=== PATIENT | female | born 1985 | race Caucasian/White ===

== ENCOUNTER → 2019-04-15 | Outpatient (CLI) | payer BC ==
--- NOTE | 2019-04-17 04:30 | CT ---
EXAMINATION TYPE: CT abdomen pelvis w con DATE OF EXAM: 04/15/2019 COMPARISON: NONE HISTORY: 33-year-old female Incisional hernia TECHNIQUE: Contiguous axial scanning of the abdomen and pelvis following administration of 100 ml Iso madi 300 IV contrast. Delayed images through the kidneys and coronal/sagittal reconstructions perform ed. CT DLP: 838 mGycm Automated exposure control for dose reduction was used. FINDINGS: Heart normal size without pericardial effusion. Lung bases clear without pleural effusion. No focal liver lesion or biliary ductal dilatation. Portal venous system is patent. Gallbladder, adrenal glands, kidneys, spleen, and pancreas appear within normal limits. No dilated small bowel, free fluid, or free air. Paucity of intra-abdominal fat limits assessment. No abdominal or pelvic lymphadenopathy is clearly i dentified. Mild circumferential bladder wall thickening may relate to nondistention. Tampon is in place. Uterus retroverted. Both ovaries are visualized. Mild cul-de-sac free fluid likely physiologic. There is a horizontally oriented scar along the anterior pelvis subcutaneous adipose. Along the left lateral margin of the scar, approximately 2.5 cm off midline, there is a 1.5 cm nodular area of incre ased density, possible enhancement with mild surrounding reticulation. No discrete abdominal wall her ely is seen. Bones: No osseous destructive process. IMPRESSION: 1. PRIOR SCAR. 2. ALONG THE LEFT LATERAL MARGIN OF THE SCAR, APPROXIMATELY 2.5 CM OFF MIDLINE, AND LOCATED WITHIN TH E SUBCUTANEOUS ADIPOSE, THERE IS A 1.5 CM NODULAR DENSITY WITH POSSIBLE ENHANCEMENT DEMONSTRATING MIL D SURROUNDING FAT STRANDING. NODULAR SCAR TISSUE VERSUS DISPLACED ENDOMETRIAL TISSUE THAT COULD EXPER IENCE CYCLICAL PAIN ARE IN THE DIFFERENTIAL. 3. NO DISCRETE ABDOMINAL WALL HERNIA. 4. RETROVERTED UTERUS. MILD CUL-DE-SAC FREE FLUID LIKELY PHYSIOLOGIC. 5. MILD CIRCUMFERENTIAL BLADDER WALL THICKENING MAY RELATE TO INCOMPLETE DISTENTION OR CYSTITIS. CLIN ICALLY CORRELATE.
== END | disposition home or self-care (01) ==
LOC: RADCTMAIN 13:14
PROVIDERS: ATTEND Surgery
DX: N85.4 Malposition of uterus (principal); N32.89 Other specified disorders of bladder
CPT/HCPCS: 74177; Q9967

== ENCOUNTER → 2023-06-04 | Outpatient (CLI) | payer BC ==
[2023-06-04 15:16] VITALS: BP 133/91; PULSE 87; RESP 17; TEMP 98.3
--- NOTE | 2023-06-04 15:23 | P.GSHP ---
History of Present Illness H&P Date: 06/04/23 Chief Complaint: breast mass Kym is a 37-year-old female seen in consultation regarding a mass in the right breast. [place] [address]. This revealed dense parenchyma diminishing the sensitivity of the mammogram to detect subtle lesions, a 2 cm density at the axillary portion of the right breast for which ultrasound was recommended was performed at that time. An ultrasound [place] performed [place] [address]672. This revealed a benign 9 x 8 mm lymph node as well as several cysts. These were felt to be benign and normal interval follow-up was recommended. [place] [address]. This revealed in the right breast at the 12 o'clock position a 1.2 x 0.9 cm mass. It presented with hypoechoic echo pattern with no posterior acoustic features. She also had a simple cyst of 0.7 x 0.8 cm in the left breast. The conclusion was benign findings and routine screening of both breasts. She has had a lump in her right breast for about 1 year. She states it is painful, it has not changed in size. She complains of soreness at the site and aching. She is not complaining of shooting pain. Complaining of any trauma to her breast. She has not had any recent infection in her breast. She is not complaining of anything abnormal nipple discharge. She has not had any surgery on her breast. CAffiene: occasional nicotine: none chocolate: several times a week BCP: used for 15-28 Family History: maternal aunt: 2 with breast cancer maternal aunt: blood cancer maternal uncle: skin cancer Hormonal History: menarche: 12 , breast fed: yes, age at first : 26 periods regular Surgical History: 2 C-sections Medical History: none Social History: HEENT: Negative Alcohol: twice a month drugs: none - Constitutional Constitutional: Denies chills, Denies fever - EENT Eyes: denies blurred vision, denies pain Ears: deny: decreased hearing, tinnitus Ears, nose, mouth and throat: Denies headache, Denies sore throat - Breasts Breasts: bilateral: as per HPI - Cardiovascular Cardiovascular: Denies chest pain, Denies shortness of breath - Respiratory Respiratory: Denies cough, Denies 7 - Gastrointestinal Gastrointestinal: Denies abdominal pain, Denies diarrhea, Denies nausea, Denies vomiting - Genitourinary (Female) Genitourinary: Denies dysuria, Denies hematuria - Menstruation Menstruation: Reports period normal - Musculoskeletal Musculoskeletal: Denies myalgias - Integumentary Integumentary: Denies pruritus, Denies rash - Neurological Neurological: Denies numbness, Denies weakness - Psychiatric Psychiatric: Denies anxiety, Denies depression - Endocrine Endocrine: Denies fatigue, Denies weight change - Hematologic/Lymphatic Comment: none - Allergic/Immunologic Allergic/Immunologic: Reports seasonal allergies Medications and Allergies Allergies Allergy/AdvReac Type Severity Reaction Status Date / Time No Known Allergies Allergy Unverified 06/04/23 14:58 Surgical - Exam - General no distress - Eyes normal ocular movement - ENT no hearing loss - Neck trachea midline - Respiratory normal respiratory effort, clear to auscultation - Cardiovascular Rhythm: regular Heart Sounds: normal: S1, S2 - Abdomen Abdomen: soft, non tender, no guarding, no rigid, no rebound - Integumentary normal turgor - Neurologic no disoriented, no combative - Musculoskeletal normal gait - Psychiatric oriented to time, oriented to person, oriented to place, speech is normal, memory intact Breast Exam: BRA: 34B Inspection: Bilateral grade 2 ptosis Palpation: Right breast: Multiple positional exam fibrocystic changes, dense breast tissue, increased nodularity approximately 10 o'clock position approximately 1.2 cm in size consistent with the lesion seen on ultrasound described at 12:00 Right axilla: No adenopathy of concern Left breast: Multi-positional exam fibrocystic changes, dense breasts, no discrete dominant masses or nodules of concern Left axilla: No adenopathy of concern Results Ultrasound reviewed [place] breast [place] [id number] Assessment and Plan Assessment: Impression: Abnormal right breast mass/ultrasound 10 o'clock position Dense breast tissue Plan: Right breast targeted ultrasound with possible biopsy of tender palpable mass at 10:00 right breast Patient to follow up after this is done CC: Jemma Bhatia
== END ==
LOC: WWCWWP 14:50
PROVIDERS: ATTEND Surgery
DX: Z12.31 Encounter for screening mammogram for malignant neoplasm of breast (principal); N63.11 Unspecified lump in the right breast, upper outer quadrant; N60.02 Solitary cyst of left breast; N63.15 Unspecified lump in the right breast, overlapping quadrants; Z80.3 Family history of malignant neoplasm of breast

== ENCOUNTER → 2023-06-11 | Outpatient (CLI) | payer BC ==
--- NOTE | 2023-06-11 08:58 | USB ---
Reason for Exam: Clinical finding. Risk Values: Alexandra 5 year model risk: 0.3%. NCI Lifetime model risk: 6.8%. Technique: Method: Targeted. Findings: The upper outer quadrant of the right breast, the area of palpable concern of the right breast, the axilla of the right breast and the retroareolar of the right breast were scanned. Targeted ultrasound of the right breast from 10-12 o'clock with additional evaluation the nipple and extra toe was performed. No definitive lesion at 10:00. There is redemonstration of a thin wall cyst with thin septations within the right breast at 12:00 3 cm the nipple measuring 1.3 x 0.7 x 1.3 cm, previously measured 0.9 x 1.1 x 0.5 cm. Overall Assessment: Benign, BI-RAD 2 Management: Screening Mammogram of both breasts at age 39. Minimally complex cyst at 12:00 in the right breast is marginally larger in size prior exam. This is amenable to ultrasound-guided aspiration as clinically indicated. A clinical breast exam by your physician is recommended on an annual basis and results should be correlated with mammographic findings. This exam should not preclude additional follow-up of suspicious palpable abnormalities. Results were given to the patient verbally at the time of exam. Electronically signed and approved by: Roman Shelley D.O.
== END | disposition home or self-care (01) ==
LOC: RADUSWWP 08:19
PROVIDERS: ATTEND Surgery
DX: N63.10 Unspecified lump in the right breast, unspecified quadrant (principal)

== ENCOUNTER → 2023-06-17 | Outpatient (CLI) | payer BC ==
--- NOTE | 2023-06-17 13:17 | P.PN ---
Subjective Progress Note Date: 06/17/23 Principal diagnosis: mass right breat at 10:00 breast mass Kym is a 37-year-old female seen in consultation regarding a mass in the right breast. [place] [address]. This revealed dense parenchyma diminishing the sensitivity of the mammogram to detect subtle lesions, a 2 cm density at the axillary portion of the right breast for which ultrasound was recommended was performed at that time. An ultrasound was performed and 37053. This revealed a benign 9 x 8 mm lymph node as well as several cysts. These were felt to be benign and normal interval follow-up was recommended. [place] [address]. This revealed in the right breast at the 12 o'clock position a 1.2 x 0.9 cm mass. It presented with hypoechoic echo pattern with no posterior acoustic features. She also had a simple cyst of 0.7 x 0.8 cm in the left breast. The conclusion was benign findings and routine screening of both breasts. She has had a lump in her right breast for about 1 year. She states it is painful, it has not changed in size. She complains of soreness at the site and aching. She is not complaining of shooting pain. Complaining of any trauma to her breast. She has not had any recent infection in her breast. She is not complaining of anything abnormal nipple discharge. She has not had any surgery on her breast. Repeat right breast ultrasound was performed on [id number] Particular attention was paid to the 10 o'clock position and no definitive lesion was identified at that point There was a thin-walled cyst at the 12 o'clock position which is 1.3 x 1.1 cm slightly larger than previous this was considered benign BIRADS 2 The patient continues to have a persistent palpable abnormality at the 10 o'clock position of the right breast, it has not changed; the ultrasound was repeated today with me in attendance directly over the area of palpable abnormality and no discrete lesion was identified. CAffiene: occasional nicotine: none chocolate: several times a week BCP: used for 15-28 Family History: maternal aunt: 2 with breast cancer maternal aunt: blood cancer maternal uncle: skin cancer Hormonal History: menarche: 12 , breast fed: yes, age at first : 26 periods regular Surgical History: 2 C-sections Medical History: none Social History: HEENT: Negative Alcohol: twice a month drugs: none - Constitutional Constitutional: Denies chills, Denies fever - EENT Eyes: denies blurred vision, denies pain Ears: deny: decreased hearing, tinnitus Ears, nose, mouth and throat: Denies headache, Denies sore throat - Breasts Breasts: bilateral: as per HPI - Cardiovascular Cardiovascular: Denies chest pain, Denies shortness of breath - Respiratory Respiratory: Denies cough - Gastrointestinal Gastrointestinal: Denies abdominal pain, Denies diarrhea, Denies nausea, Denies vomiting - Genitourinary (Female) Genitourinary: Denies dysuria, Denies hematuria - Menstruation Menstruation: Reports period normal - Musculoskeletal Musculoskeletal: Denies myalgias - Integumentary Integumentary: Denies pruritus, Denies rash - Neurological Neurological: Denies numbness, Denies weakness - Psychiatric Psychiatric: Denies anxiety, Denies depression - Endocrine Endocrine: Denies fatigue, Denies weight change - Hematologic/Lymphatic Comment: none - Allergic/Immunologic Allergic/Immunologic: Reports seasonal allergies Medications and Allergies Allergies Allergy/AdvReac Type Severity Reaction Status Date / Time No Known Allergies Allergy Unverified 06/04/23 14:58 Surgical - Exam - General no distress - Eyes normal ocular movement - ENT no hearing loss - Neck trachea midline - Respiratory normal respiratory effort, clear to auscultation - Cardiovascular Rhythm: regular Heart Sounds: normal: S1, S2 - Abdomen Abdomen: soft, non tender, no guarding, no rigid, no rebound - Integumentary normal turgor - Neurologic no disoriented, no combative - Musculoskeletal normal gait - Psychiatric oriented to time, oriented to person, oriented to place, speech is normal, memory intact Breast Exam: BRA: 34B Inspection: Bilateral grade 2 ptosis Palpation: Right breast: Multiple positional exam fibrocystic changes, dense breast tissue, increased nodularity approximately 10 o'clock position approximately 1.2 cm in size consistent with the lesion seen on ultrasound described at 12:00 Right axilla: No adenopathy of concern Left breast: Multi-positional exam fibrocystic changes, dense breasts, no discrete dominant masses or nodules of concern Left axilla: No adenopathy of concern Results Ultrasound reviewed from [place] breast from [id number] Assessment and Plan Assessment: Impression: Abnormal right breast mass/ultrasound 10 o'clock position Dense breast tissue Plan: Right breast targeted ultrasound with possible biopsy of tender palpable mass at 10:00 right breast Patient to follow up after this is done CC: Jemma Bhatia Additional CC's: Jemma Bhatia Objective - Constitutional General appearance: Present: cooperative - EENT Eyes: Present: EOMI - Additional findings Additional findings: Breast examination: There is a persistent area of nodularity at the 10 o'clock position of the right breast, no other discrete dominant masses or nodules are identified Left breast examination was done on her last visit Assessment and Plan Assessment: Impression: Persistent nodularity 10 o'clock position right breast Plan: FNA persistent nodularity right breast, depending on results of this we may recommend excision in the operating room CC: DR. Torres
== END ==
LOC: WWCWWP 11:56
PROVIDERS: ATTEND Surgery
DX: N60.02 Solitary cyst of left breast (principal); N63.11 Unspecified lump in the right breast, upper outer quadrant; N63.15 Unspecified lump in the right breast, overlapping quadrants; Z80.3 Family history of malignant neoplasm of breast

== ENCOUNTER → 2023-07-09 | Outpatient (CLI) | payer BC ==
--- NOTE | 2023-07-09 15:59 | P.PN ---
Subjective Progress Note Date: 07/09/23 breast mass Kym is a 37-year-old female seen in consultation regarding a mass in the right breast. [place] [address]. This revealed dense parenchyma diminishing the sensitivity of the mammogram to detect subtle lesions, a 2 cm density at the axillary portion of the right breast for which ultrasound was recommended was performed at that time. An ultrasound was performed and [id number]. This revealed a benign 9 x 8 mm lymph node as well as s everal cysts. These were felt to be benign and normal interval follow-up was recommended. [place] [address]. This revealed in the right breast at the 12 o'clock position a 1.2 x 0.9 cm mass. It presented with hypoechoic echo pattern with no posterior acoustic features. She also had a simple cyst of 0.7 x 0.8 cm in the left breast. The conclusion was benign findings and routine screening of both breasts. She has had a lump in her right breast for about 1 year. She states it is painful, it has not changed in size. She complains of soreness at the site and aching. She is not complaining of shooting pain. Complaining of any trauma to her breast. She has not had any recent infection in her breast. She is not complaining of anything abnormal nipple discharge. She has not had any surgery on her breast. a trageted ultrasound was done of the right breast on 06-11-23 no definitive lesion was seen at 10:00 FNA done of the area non-diagnostic 06-17-23 CAffiene: occasional nicotine: none chocolate: several times a week BCP: used for 15-28 Family History: maternal aunt: 2 with breast cancer maternal aunt: blood cancer maternal uncle: skin cancer Hormonal History: menarche: 12 , breast fed: yes, age at first : 26 periods regular Surgical History: 2 C-sections Medical History: none Social History: HEENT: Negative Alcohol: twice a month drugs: none - Constitutional Constitutional: Denies chills, Denies fever - EENT Eyes: denies blurred vision, denies pain Ears: deny: decreased hearing, tinnitus Ears, nose, mouth and throat: Denies headache, Denies sore throat - Breasts Breasts: bilateral: as per HPI - Cardiovascular Cardiovascular: Denies chest pain, Denies shortness of breath - Respiratory Respiratory: Denies cough - Gastrointestinal Gastrointestinal: Denies abdominal pain, Denies diarrhea, Denies nausea, Denies vomiting - Genitourinary (Female) Genitourinary: Denies dysuria, Denies hematuria - Menstruation Menstruation: Reports period normal - Musculoskeletal Musculoskeletal: Denies myalgias - Integumentary Integumentary: Denies pruritus, Denies rash - Neurological Neurological: Denies numbness, Denies weakness - Psychiatric Psychiatric: Denies anxiety, Denies depression - Endocrine Endocrine: Denies fatigue, Denies weight change - Hematologic/Lymphatic Comment: none - Allergic/Immunologic Allergic/Immunologic: Reports seasonal allergies Medications and Allergies Allergies Allergy/AdvReac Type Severity Reaction Status Date / Time No Known Allergies Allergy Unverified 06/04/23 14:58 Objective - Constitutional General appearance: Present: cooperative - EENT Eyes: Present: EOMI ENT: Present: hearing grossly normal - Neck Neck: Present: normal ROM - Respiratory Respiratory: bilateral: CTA - Cardiovascular Rhythm: regular Heart sounds: normal: S1, S2 - Integumentary Integumentary: Present: normal turgor - Musculoskeletal Musculoskeletal: Present: gait normal - Psychiatric Psychiatric: Present: A&O x's 3, appropriate affect, intact judgment & insight - Additional findings Additional findings: Breast Exam: BRA: 34B Inspection: Bilateral grade 2 ptosis Palpation: Right breast: Multiple positional exam fibrocystic changes, dense breast tissue, increased nodularity approximately 10 o'clock position approximately 1.2 cm in size consistent with the lesion seen on ultrasound described at 12:00 Right axilla: No adenopathy of concern Left breast: Multi-positional exam fibrocystic changes, dense breasts, no discrete dominant masses or nodules of concern Left axilla: No adenopathy of concern Assessment and Plan Assessment: Assessment: Impression: Abnormal right breast mass Dense breast tissue Plan: right breast excision of mass UOQ possible onco-plastic tissue transfer Patient to follow up after this is done CC: Jemma Bhatia Additional CC's: Jemma Bhatia
[2023-07-09 16:13] VITALS: BP 148/89; PULSE 87; RESP 17; TEMP 97.8
== END ==
LOC: WWCWWP 15:36
PROVIDERS: ATTEND Surgery
DX: N63.15 Unspecified lump in the right breast, overlapping quadrants (principal); N60.02 Solitary cyst of left breast; R92.30 Dense breasts, unspecified; Z80.3 Family history of malignant neoplasm of breast

== ENCOUNTER 2023-08-24 07:10 | Day surgery (SDC) | payer BC ==
[2023-08-17 15:45] VITALS: BMI 23.3
--- NOTE | 2023-08-19 17:10 | P.PN ---
Subjective Progress Note Date: 08/19/23 Principal diagnosis: right breast mass 07/09/23 breast mass Kym is a 38-year-old female seen in consultation regarding a mass in the right breast. [place] [address]. This revealed dense parenchyma diminishing the sensitivity of the mammogram to detect subtle lesions, a 2 cm density at the axillary portion of the right breast for which ultrasound was recommended was performed at that time. An ultrasound [place] perf ormed [place] 45398. This revealed a benign 9 x 8 mm lymph node as well as several cysts. These were felt to be benign and normal interval follow-up was recommended. [place] [address]. This revealed in the right breast at the 12 o'clock position a 1.2 x 0.9 cm mass. It presented with hypoechoic echo pattern with no posterior acoustic features. She also had a simple cyst of 0.7 x 0.8 cm in the left breast. The conclusion was benign findings and routine screening of both breasts. She has had a lump in her right breast for about 1 year. She states it is painful, it has not changed in size. She complains of soreness at the site and aching. She is not complaining of shooting pain. Complaining of any trauma to her breast. She has not had any recent infection in her breast. She is not complaining of anything abnormal nipple discharge. She has not had any surgery on her breast. a trageted ultrasound was done of the right breast on 06-11-23 no definitive lesion was seen at 10:00 FNA done of the area non-diagnostic 06-17-23 CAffiene: occasional nicotine: none chocolate: several times a week BCP: used for 15- Family History: maternal aunt: 2 with breast cancer maternal aunt: blood cancer maternal uncle: skin cancer Hormonal History: menarche: 12 , breast fed: yes, age at first : 26 periods regular Surgical History: 2 C-sections Medical History: none Social History: HEENT: Negative Alcohol: twice a month drugs: none - Constitutional Constitutional: Denies chills, Denies fever - EENT Eyes: denies blurred vision, denies pain Ears: deny: decreased hearing, tinnitus Ears, nose, mouth and throat: Denies headache, Denies sore throat - Breasts Breasts: bilateral: as per HPI - Cardiovascular Cardiovascular: Denies chest pain, Denies shortness of breath - Respiratory Respiratory: Denies cough - Gastrointestinal Gastrointestinal: Denies abdominal pain, Denies diarrhea, Denies nausea, Denies vomiting - Genitourinary (Female) Genitourinary: Denies dysuria, Denies hematuria - Menstruation Menstruation: Reports period normal - Musculoskeletal Musculoskeletal: Denies myalgias - Integumentary Integumentary: Denies pruritus, Denies rash - Neurological Neurological: Denies numbness, Denies weakness - Psychiatric Psychiatric: Denies anxiety, Denies depression - Endocrine Endocrine: Denies fatigue, Denies weight change - Hematologic/Lymphatic Comment: none - Allergic/Immunologic Allergic/Immunologic: Reports seasonal allergies Medications and Allergies Allergies Allergy/AdvReac Type Severity Reaction Status Date / Time No Known Allergies Allergy Unverified 06/04/23 14:58 Objective - Constitutional General appearance: Present: cooperative - EENT Eyes: Present: EOMI ENT: Present: hearing grossly normal - Neck Neck: Present: normal ROM - Respiratory Respiratory: bilateral: CTA - Cardiovascular Heart sounds: normal: S1, S2 - Integumentary Integumentary: Present: normal turgor - Musculoskeletal Musculoskeletal: Present: gait normal - Psychiatric Psychiatric: Present: A&O x's 3, appropriate affect, intact judgment & insight - Additional findings Additional findings: Breast Exam: BRA: 34B Inspection: Bilateral grade 2 ptosis Palpation: Right breast: Multiple positional exam fibrocystic changes, dense breast tissue, increased nodularity approximately 10 o'clock position approximately 1.2 cm in size consistent with the lesion seen on ultrasound described at 12:00 Right axilla: No adenopathy of concern Left breast: Multi-positional exam fibrocystic changes, dense breasts, no discrete dominant masses or nodules of concern Left axilla: No adenopathy of concern Assessment and Plan Assessment: Impression: Abnormal right breast mass Dense breast tissue Plan: right breast excision of mass UOQ possible onco-plastic tissue transfer Patient to follow up after this is done CC: Jemma Bhatia
[~2023-08-24 07:10] MED LIST: HEPARIN SODIUM,PORCINE 5,000 UNIT/ML 1 ML VIAL SQ PRN
[2023-08-24] MEDS ORDERED: LIDOCAINE 1% (10MG/ML) FOR IV START INTRADERMA PRN (07:20)
[2023-08-24] MEDS ORDERED: MORPHINE SULFATE 4 MG/ML SYRINGE IV PRN (07:20)
[2023-08-24] MEDS ORDERED: ONDANSETRON 4 MG/2 ML VIAL IVP ONE (07:20)
[2023-08-24] MEDS ORDERED: METOCLOPRAMIDE 5 MG/ML 2 ML VIAL IVP PRN (07:20)
[2023-08-24] MEDS ORDERED: DEXAMETHASONE SOD PHOSPHATE 4 MG/ML 1 ML VIAL IV ONE (07:20)
[2023-08-24] MEDS: LACTATED RINGERS 1,000 ML IV SCH ×2 (07:23→07:55)
[2023-08-24] MEDS ORDERED: LIDOCAINE 1% INJ 10MG/ML (20 ML MDV) ONE (08:30)
[2023-08-24] MEDS ORDERED: MIDAZOLAM 2 MG/2 ML VIAL ONE (08:30)
[2023-08-24] MEDS ORDERED: PROPOFOL 10 MG/ML 20 ML VIAL IV ONE (08:30)
[2023-08-24] MEDS ORDERED: fentaNYL (PF) 50 MCG/ML 2 ML AMP ONE (08:30)
--- NOTE | 2023-08-24 09:33 | P.OP ---
Date of Procedure: 08/24/23 Preoperative Diagnosis: right breast mass UOQ Postoperative Diagnosis: same Procedure(s) Performed: excision of mass right breast Anesthesia: BRENDA Surgeon: Rima Larose Estimated Blood Loss (ml): 5 IV fluids (ml): 500 Pathology: other Condition: stable Disposition: same day Indications for Procedure: mass right breast Operative Findings: very dense breast tissue Description of Procedure: The patient was taken to the operative suite and following induction of anesthesia the right breast was prepped and draped in a sterile fashion. An incision was made over the palpable firm area in the upper outer quadrant. Dissection was performed down through the skin and subcutaneous tissue. The area of very firm tissue was grasped using an Allis clamp. Wide excision was performed. The tissue was extremely dense. The specimen was painted for orientation. A titanium clip titanium clip was placed. Surgicel in powder form was placed. The deep tissues were closed using 3-0 Vicryl . The skin was closed using 4-0 Monocryl. Surgical glue was placed. The patient tolerated the procedure in stable condition. All instrument and sponge counts were correct at the end of the case Surgical glue was placed.
[2023-08-24 09:58] VITALS: TEMP 97.4
[2023-08-24] MEDS ORDERED: MORPHINE SULFATE 4 MG/ML SYRINGE IVP ONE ×2 (10:08→10:14)
[2023-08-24 10:23] VITALS: RESP 16
[2023-08-24] MEDS ORDERED: diphenhydrAMINE 50 MG/ML 1 ML VIAL IVP ONE (10:23)
[2023-08-24] MEDS ORDERED: LACTATED RINGERS 1,000 ML IV ONE (10:26)
[2023-08-24] MEDS ORDERED: HYDROmorphone 0.5 MG/0.5 ML SYRINGE IVP ONE (10:34)
[2023-08-24] MEDS ORDERED: HYDROcodone/APAP 5-325MG 1 EACH TAB ONE (11:05)
[2023-08-24 11:40] VITALS: BP 118/73; PULSE 70
== END 2023-08-24 12:24 | disposition home or self-care (01) ==
LOC: OR 07:10
PROVIDERS: ATTEND Surgery
DX: N60.21 Fibroadenosis of right breast (principal); N60.81 Other benign mammary dysplasias of right breast; R92.0 Mammographic microcalcification found on diagnostic imaging of breast; Z98.890 Other specified postprocedural states
CPT/HCPCS: 81025; 88307; 19120; J2250; J2270; J1200; J1644; J1100; J0690; J2405; J2001; J3010; J2704; J1170

== ENCOUNTER → 2023-09-03 | Outpatient (CLI) | payer BC ==
[2023-09-03 16:05] VITALS: BP 132/94; PULSE 73; RESP 16; TEMP 98.1
--- NOTE | 2023-09-03 16:15 | P.PN ---
Progress Note - Text Progress Note Date: 09/03/23 Kym is status post resection of a right breast mass on 08-24-23. Pathology revealed flat epithelial atypia, and PASH. She tolerated the procedure without difficulty. No prophylaxis however secondary to the fact this is flat epithelial atypia and not atypical hyperplasia we are going to follow with close surveillance. Examination: lungs: clear heart: RRR incision: clean and dry Alexandra Risk: 5 year : 0.9% lifetime risk: 13.6% Impression: Right breast biopsy Plan: bilateral mammogram and appointment in 6 months CC: Jemma Bhatia
== END ==
LOC: WWCWWP 15:38
PROVIDERS: ATTEND Surgery
DX: R92.8 Other abnormal and inconclusive findings on diagnostic imaging of breast (principal)

== ENCOUNTER → 2023-11-05 | Outpatient (CLI) | payer BC ==
[2023-11-05 10:48] VITALS: BP 153/99; PULSE 83; RESP 17; TEMP 98.1
--- NOTE | 2023-11-05 10:49 | P.PN ---
Subjective Progress Note Date: 11/05/23 fibrocystic breast Kym is a 38-year-old female seen in consultation regarding a mass in the right breast. [place] [address]. This revealed dense parenchyma diminishing the sensitivity of the mammogram to detect subtle lesions, a 2 cm density at the axillary portion of the right breast for which ultrasound was recommended was performed at that time. [place] [id number]. This revealed a benign 9 x 8 mm lymph node as well as several cysts. These were felt to be benign and normal interval follow-up was recommended. [place] [id number]. This revealed in the right breast at the 12 o'clock position a 1.2 x 0.9 cm mass. It presented with hypoechoic echo pattern with no posterior acoustic features. She also had a simple cyst of 0.7 x 0.8 cm in the left breast. The conclusion was benign findings and routine screening of both breasts. She also had noted a lump in her right breast for about 1 year. She states it was painful, but had not changed in size. She complained of soreness at the site and aching. She was not complaining of shooting pain. She was not complaining of any trauma to her breast. She had not had any recent infection in her breast. She was not complaining of anything abnormal nipple discharge. She has not had any surgery on her breast. a trageted ultrasound was done of the right breast on 06-11-23 no definitive lesion was seen at 10:00 FNA done of the area non-diagnostic 06-17-23 Secondary to persistent painful nodularity resection in the OR was done of the palpable mass on 08-24-23; this revealed PASH and flat epithelial atypia. She did well with the procedure. The patient at this time has some concerns related to the healing of the lumpectomy site. The scar is well-healed and it is healed well however she does note some asymmetry related to the site. She has not noted any new lumps masses or nodules of concern in either breast. We have also discussed genetic testing and at this time we are going to wait. CAffiene: occasional nicotine: none chocolate: several times a week BCP: used for 15-28 Family History: maternal aunt: 2 with breast cancer maternal aunt: blood cancer maternal uncle: skin cancer Hormonal History: menarche: 12 , breast fed: yes, age at first : 26 periods regular Surgical History: 2 C-sections Medical History: none Social History: HEENT: Negative Alcohol: twice a month drugs: none - Constitutional Constitutional: Denies chills, Denies fever - EENT Eyes: denies blurred vision, denies pain Ears: deny: decreased hearing, tinnitus Ears, nose, mouth and throat: Denies headache, Denies sore throat - Breasts Breasts: bilateral: as per HPI - Cardiovascular Cardiovascular: Denies chest pain, Denies shortness of breath - Respiratory Respiratory: Denies cough - Gastrointestinal Gastrointestinal: Denies abdominal pain, Denies diarrhea, Denies nausea, Denies vomiting - Genitourinary (Female) Genitourinary: Denies dysuria, Denies hematuria - Menstruation Menstruation: Reports period normal - Musculoskeletal Musculoskeletal: Denies myalgias - Integumentary Integumentary: Denies pruritus, Denies rash - Neurological Neurological: Denies numbness, Denies weakness - Psychiatric Psychiatric: Denies anxiety, Denies depression - Endocrine Endocrine: Denies fatigue, Denies weight change - Hematologic/Lymphatic Comment: none - Allergic/Immunologic Allergic/Immunologic: Reports seasonal allergies Medications and Allergies Allergies Allergy/AdvReac Type Severity Reaction Status Date / Time No Known Allergies Allergy Unverified 06/04/23 14:58 Objective - Constitutional General appearance: Present: cooperative - EENT Eyes: Present: EOMI ENT: Present: hearing grossly normal - Neck Neck: Present: normal ROM - Respiratory Respiratory: bilateral: CTA - Cardiovascular Rhythm: regular Heart sounds: normal: S1, S2 - Gastrointestinal General gastrointestinal: Present: soft - Integumentary Integumentary: Present: normal turgor - Musculoskeletal Musculoskeletal: Present: gait normal - Psychiatric Psychiatric: Present: A&O x's 3, appropriate affect, intact judgment & insight - Additional findings Additional findings: Breast Exam: BRA: 34B Inspection: Bilateral grade 2 ptosis Palpation: Right breast: Multiple positional exam fibrocystic changes, dense breast tissue, increased nodularity approximately 10 o'clock position approximately 1.2 cm in size consistent with the lesion seen on ultrasound described at 12:00 Right axilla: No adenopathy of concern Left breast: Multi-positional exam fibrocystic changes, dense breasts, no discrete dominant masses or nodules of concern Left axilla: No adenopathy of concern Assessment and Plan Assessment: Impression: Abnormal right breast mass resected 08-24-23 benign Dense breast tissue Plan: Bilateral mammogram and ultrasound right breast in March with appointment at that time Patient to follow-up sooner any questions or concerns We have discussed wound healing, and her pathology results which included flat epithelial atypia. At this time we are not [place] recommending chemoprophylaxis. If she continues to be concerned regarding asymmetry of the breast then I would refer her to a plastic surgeon for possible fat grafting. She understands and at this time we are going to wait and she will be seen again in March with a right breast mammogram and ultrasound. CC: Jemma Bhatia
== END ==
LOC: WWCWWP 09:23
PROVIDERS: ATTEND Surgery
DX: N63.15 Unspecified lump in the right breast, overlapping quadrants (principal); R92.30 Dense breasts, unspecified; Z80.3 Family history of malignant neoplasm of breast

== ENCOUNTER → 2024-03-02 | Outpatient (CLI) | payer BC ==
--- NOTE | 2024-03-28 12:14 | MM ---
Reason for Exam: Screening (asymptomatic). Last mammogram was performed 2 year(s) and 2 month(s) ago. Patient History: Menarche at age 13. First Full-Term at age 26. Patient has history of breast feeding. Patient used Hormonal Contraceptives for 10 years. 08/2023, Excisional Biopsy on the Right side. Maternal aunt ([place]) had breast cancer at or over age 50. Maternal aunt ([place]) had breast cancer under age 50. Last menstrual period: 02/12/2024 Risk Values: Alexandra 5 year model risk: 0.8%. NCI Lifetime model risk: 12.5%. Prior Study Comparison: 01/20/2022 Bilateral MG 3D diag mammo w/cad [facility] - 2, Unknown. 06/11/2023 Right US breast limited RT, [facility]. Tissue Density: The breasts are extremely dense, which lowers the sensitivity of mammography. Findings: Analyzed By CAD. There is no suspicious group of microcalcifications or new suspicious mass in either breast. Scattered benign calcifications present. Overall Assessment: Benign, BI-RAD 2 Management: Screening Mammogram of both breasts in 1 year. Patient should continue monthly self-breast exams. A clinical breast exam by your physician is recommended on an annual basis. This exam should not preclude additional follow-up of suspicious palpable abnormalities. Note on Alexandra scores and lifetime risk: 1. A Alexandra score greater than 3% is considered moderate risk. If this is the case, consider specialist referral to assess eligibility for a risk reducing agent. 2. If overall lifetime risk for the development of breast cancer is 20% or higher, the patient may qualify for future screening with alternating mammogram and breast MRI. Electronically signed and approved by: Robby Dietz M.D. Radiologis
== END | disposition home or self-care (01) ==
LOC: RADMAMWWP 07:34
PROVIDERS: ATTEND Surgery
DX: Z12.31 Encounter for screening mammogram for malignant neoplasm of breast (principal); Z80.3 Family history of malignant neoplasm of breast; Z92.0 Personal history of contraception
CPT/HCPCS: 77063; 77067

== ENCOUNTER → 2024-04-07 | Outpatient (CLI) | payer BC ==
[2024-04-07 14:41] VITALS: BP 129/86; RESP 19; TEMP 97.6
--- NOTE | 2024-04-07 14:54 | P.PN ---
Subjective Progress Note Date: 04/07/24 Principal diagnosis: fibrocystic breast disease 11/05/23 fibrocystic breast Kym is a 38-year-old female seen in consultation regarding a mass in the right breast. [place] [id number]. This revealed dense parenchyma diminishing the sensitivity of the mammogram to detect subtle lesions, a 2 cm density at the axillary portion of the right breast for which ultrasound was recommended was performed at that time. [place] ultrasound was performed [place] 40432. This revealed a benign 9 x 8 mm lymph node as well as several cysts. These were felt to be benign and normal interval follow-up was recommended. [place] [id number]. This revealed in the right breast at the 12 o'clock position a 1.2 x 0.9 cm mass. It presented with hypoechoic echo pattern with no posterior acoustic features. She also had a simple cyst of 0.7 x 0.8 cm in the left breast. The conclusion was benign findings and routine screening of both breasts. She also had noted a lump in her right breast for about 1 year. She states it was painful, but had not changed in size. She complained of soreness at the site and aching. She was not complaining of shooting pain. She was not complaining of any trauma to her breast. She had not had any recent infection in her breast. She was not complaining of anything abnormal nipple discharge. She has not had any surgery on her breast. a trageted ultrasound was done of the right breast on 06-11-23 no definitive lesion was seen at 10:00 FNA done of the area non-diagnostic 06-17-23 Secondary to persistent painful nodularity resection in the OR was done of the palpable mass on 08-24-23; this revealed PASH and flat epithelial atypia. She did well with the procedure. The patient had some concerns related to the healing of the lumpectomy site. The scar is well-healed however she does note some asymmetry related to the site. She has not noted any new lumps masses or nodules of concern in either breast. We have also discussed genetic testing and at this time we are going to wait. bilateral mammogram personally reviewed 03-02-24 BIRAD 2 She is not complaining of any new lumps masses or nodules Alexandra 5 year risk: 0.8% NCI lifetime risk: 12.5% CAffiene: occasional nicotine: none chocolate: several times a week BCP: used for 15-28 Family History: maternal aunt: 2 with breast cancer maternal aunt: blood cancer maternal uncle: skin cancer Hormonal History: menarche: 12 , breast fed: yes, age at first : 26 periods regular Surgical History: 2 C-sections Medical History: none Social History: HEENT: Negative Alcohol: twice a month drugs: none - Constitutional Constitutional: Denies chills, Denies fever - EENT Eyes: denies blurred vision, denies pain Ears: deny: decreased hearing, tinnitus Ears, nose, mouth and throat: Denies headache, Denies sore throat - Breasts Breasts: bilateral: as per HPI - Cardiovascular Cardiovascular: Denies chest pain, Denies shortness of breath - Respiratory Respiratory: Denies cough - Gastrointestinal Gastrointestinal: Denies abdominal pain, Denies diarrhea, Denies nausea, Denies vomiting - Genitourinary (Female) Genitourinary: Denies dysuria, Denies hematuria - Menstruation Menstruation: Reports period normal - Musculoskeletal Musculoskeletal: Denies myalgias - Integumentary Integumentary: Denies pruritus, Denies rash - Neurological Neurological: Denies numbness, Denies weakness - Psychiatric Psychiatric: Denies anxiety, Denies depression - Endocrine Endocrine: Denies fatigue, Denies weight change - Hematologic/Lymphatic Comment: none - Allergic/Immunologic Allergic/Immunologic: Reports seasonal allergies Medications and Allergies Allergies Allergy/AdvReac Type Severity Reaction Status Date / Time No Known Allergies Allergy Unverified 06/04/23 14:58 Objective - Vital Signs Vital signs: Vital Signs Temp 97.6 F 04/07/24 14:38 Pulse Resp 19 04/07/24 14:38 BP 129/86 04/07/24 14:38 Pulse Ox 98 04/07/24 14:38 FiO2 Intake & Output 04/06/24 04/07/24 04/07/24 18:59 06:59 18:59 Weight 65.771 kg - Constitutional General appearance: Present: cooperative - EENT Eyes: Present: EOMI ENT: Present: hearing grossly normal - Neck Neck: Present: normal ROM - Respiratory Respiratory: bilateral: CTA - Cardiovascular Heart sounds: normal: S1, S2 - Integumentary Integumentary: Present: normal turgor - Musculoskeletal Musculoskeletal: Present: gait normal - Psychiatric Psychiatric: Present: A&O x's 3, appropriate affect, intact judgment & insight - Additional findings Additional findings: Breast Exam: BRA: 34B Inspection: Bilateral grade 2 ptosis Palpation: Right breast: Multiple positional exam fibrocystic changes, dense breast tissue, increased nodularity approximately 10 o'clock position approximately 1.2 cm in size consistent with the lesion seen on ultrasound described at 12:00 Right axilla: No adenopathy of concern Left breast: Multi-positional exam fibrocystic changes, dense breasts, no discrete dominant masses or nodules of concern Left axilla: No adenopathy of concern Assessment and Plan Assessment: Impression: Abnormal right breast mass resected 08-24-23 benign Dense breast tissue bilateral mammogram 03-02-24 BIRAD 2 personally interpreted and reviewed The patient is concerned regarding sunken appearance at the biopsy site in the right breast Plan: Bilateral mammogram one year with appointment at that time, we have discussed ultrasound of the right breast and at this time we are going to sit tight with that Appointment with plastic surgery regarding the sunken appearance at the biopsy site of the right breast Nothing on today's examination or recent mammogram would warrant interventional biopsy Patient to follow-up sooner any questions or concerns CC: Jemma Bhatia
== END ==
LOC: WWCWWP 14:13
PROVIDERS: ATTEND Surgery
DX: R92.8 Other abnormal and inconclusive findings on diagnostic imaging of breast (principal); N60.11 Diffuse cystic mastopathy of right breast; N60.12 Diffuse cystic mastopathy of left breast; N63.15 Unspecified lump in the right breast, overlapping quadrants; R92.30 Dense breasts, unspecified; Z80.3 Family history of malignant neoplasm of breast